=== PATIENT | female | born 1955 | race Caucasian/White ===

== ENCOUNTER 2016-10-18 18:56 | Emergency (ER) | payer OTHER ==
[2016-10-18 19:09] VITALS: BP 126/70
--- NOTE | 2016-10-18 19:45 | UC ---
Respiratory Complaint HPI - HPI Summary HPI Summary: INTERMITTENT NONPRODUCTIVE COUGH SINCE 10/13/16. HAD BEEN TAKING ZYRTEC. PATIENT IS ON HUMIRA. NO FEVER. NO FATIGUE. NO SORE THROAT. NO WHEEZING. NO CHEST PAIN. NO SHORTNESS OF BREATH. - History of Current Complaint Chief Complaint: UCRespiratory Stated Complaint: COUGH Time Seen by Provider: 10/18/16 19:27 Hx Obtained From: Patient Onset/Duration: Gradual Onset, Lasting Days, Still Present Timing: Intermittent Episodes Severity Initially: Mild Severity Currently: Mild Aggravating Factors: Allergens, Recumbent Position Alleviating Factors: Nothing Associated Signs And Symptoms: Positive: URI, Hoarseness. Negative: Fever, Chills - Risk Factors Cardiac Risk Factors: Negative Pseudomonas Risk Factors: Negative Tuberculosis Risk Factors: Negative - Allergies/Home Medications Allergies/Adverse Reactions: Allergies Allergy/AdvReac Type Severity Reaction Status Date / Time Cefdinir Allergy Stomach Verified 10/18/16 19:09 Cramps Home Medications: Home Medications Biotin 10/18/16 [History] Glucosamine Sulfate [Glucosamine] 10/18/16 [History] Magnesium 10/18/16 [History] Turmeric (Curcuma Longa) (Bulk [Turmeric] 10/18/16 [History] PMH/Surg Hx/FS Hx/Imm Hx Previously Healthy: Yes - Surgical History Surgical History: Yes Surgery Procedure, Year, and Place: Tonsillectomy. Appendectomy. Hysterectomy. Bilateral carpal tunnel. Excision neuroma right foot, LEG VEIN SURGERY - Family History Known Family History: Positive: Other - RA Negative: Respiratory Disease - Social History Lives: With Family Alcohol Use: Rare Substance Use Type: None Smoking Status (MU): Never Smoked Tobacco Review of Systems Constitutional: Negative Skin: Negative Eyes: Negative ENT: Negative Respiratory: Cough Cardiovascular: Negative Gastrointestinal: Negative Genitourinary: Negative Motor: Negative Neurovascular: Negative Musculoskeletal: Negative Neurological: Negative Psychological: Negative All Other Systems Reviewed And Are Negative: Yes Physical Exam Triage Information Reviewed: Yes Appearance: Well-Appearing, No Pain Distress, Well-Nourished Vital Signs: Initial Vital Signs Temp 97.3 F 10/18/16 19:04 Pulse 67 10/18/16 19:04 Resp 18 10/18/16 19:04 BP 126/70 10/18/16 19:04 Pulse Ox 95 10/18/16 19:04 Vital Signs Reviewed: Yes Eye Exam: Normal ENT Exam: Normal ENT: Positive: Normal ENT inspection, Hearing grossly normal, Pharynx normal, TMs normal Dental Exam: Normal Neck exam: Normal Neck: Positive: Supple, Nontender, No Lymphadenopathy Respiratory Exam: Other - INTERMITENT DRY COUGH Respiratory: Positive: Chest non-tender, Lungs clear, Normal breath sounds, No respiratory distress, No accessory muscle use Cardiovascular Exam: Normal Cardiovascular: Positive: RRR, No Murmur, Pulses Normal Abdominal Exam: Normal Musculoskeletal Exam: Normal Neurological Exam: Normal Psychological Exam: Normal Skin Exam: Normal UC Diagnostic Evaluation - Laboratory O2 Sat by Pulse Oximetry: 95 Respiratory Course/Dx - Differential Dx/Diagnosis Differential Diagnosis/HQI/PQRI: Bronchitis, Laryngitis, Sinusitis Provider Diagnoses: UPPER RESPIRATORY INFECTION Discharge - Discharge Plan Condition: Stable Disposition: HOME Prescriptions: Benzonatate CAP* [Tessalon 100 MG CAP*] 100 mg PO TID PRN #15 cap PRN Reason: Cough Patient Education Materials: Upper Respiratory Infection (ED) Referrals: Barrie Alfred NP [Primary Care Provider] -
== END 2016-10-18 19:43 | disposition home or self-care (01) ==
LOC: UCEAST 18:56
DX: J06.9 Acute upper respiratory infection, unspecified (principal)
CPT/HCPCS: 99212; G0463